=== PATIENT | male | born 1995 | race Caucasian/White ===

== ENCOUNTER 2022-06-04 05:29 | Emergency (ER) | payer SELFPAY ==
[2022-06-04 05:48] VITALS: BP 115/67
[2022-06-04 06:55] LABS: BASOPHILS % (AUTO) 0.5 %; EOSINOPHILS # (AUTO) 0.1 10^3/uL (0.0-0.7); EOSINOPHILS % (AUTO) 1.1 %; HCT - HEMATOCRIT 41.1 % (42.0-52.0); HGB - HEMOGLOBIN 13.6 g/dL (14.0-18.0); LYMPHOCYTES # (AUTO) 2.2 10^3/uL (1.5-3.5); LYMPHOCYTES % (AUTO) 26.9 %; MEAN CORPUSCULAR HEMOGLOBIN 30.6 pg (27.0-31.0); MEAN CORPUSCULAR HGB CONC 33.1 g/dL (32.0-36.0); MEAN CORPUSCULAR VOLUME 92.6 fL (80.0-94.0); MEAN PLATELET VOLUME 10.1 fL (7.4-11.4); MONOCYTES # (AUTO) 0.9 10^3/uL (0.0-1.0); MONOCYTES % (AUTO) 11.1 %; PLT - PLATELET COUNT 201 10^3/uL (130-450); RED BLOOD COUNT 4.44 10^6/uL (4.70-6.10); RED CELL DISTRIBUTION WIDTH 12.1 % (12.0-15.0); WHITE BLOOD COUNT 8.3 x10^3/uL (4.8-10.8)
[2022-06-04 07:04] LABS: ALBUMIN/GLOBULIN RATIO 1.1 (1.0-2.2); BILIRUBIN,TOTAL 0.6 mg/dL (0.2-1.0); CREATININE 0.8 mg/dL (0.6-1.2); POTASSIUM 3.8 mmol/L (3.5-5.0); TOTAL PROTEIN 7.6 g/dL (6.7-8.2)
--- NOTE | 2022-06-04 07:28 | ED Physician Documentation ---
History of Present Illness - Stated complaint Stated Complaint: SOA, DIZZY, NUMBNESS - Chief complaint Chief Complaint: General - History obtained from History obtained from: Patient - History of Present Illness Timing: How many days ago (3) Pain level max: 0 Pain level now: 0 - Additonal information Additional information: HPI from patient. Patient c/o insomnia x past three nights. Patient notes episodic dyspnea which patient describes as "I feel like no matter how deep a breath I take, I'm still not getting enough air". Denies cough, fever, chest pain, leg swelling. Denies h/o similar symptoms. Review of Systems Cardiac: denies: Chest pain / pressure, Palpitations Respiratory: reports: Dyspnea. denies: Cough Musculoskeletal: denies: Extremity swelling PD PAST MEDICAL HISTORY - Past Medical History Past Medical History: Yes Cardiovascular: None Respiratory: None Neuro: None Endocrine/Autoimmune: None GI: None : None HEENT: None Psych: None Musculoskeletal: None Derm: None Other Past Medical History: SEXUAL RE ASSIGNMENT... - Past Surgical History Past Surgical History: Yes General: Other - Present Medications Home Medications: Ambulatory Orders Medication Instructions Recorded Confirmed Progesterone,Micronized 100 gm MC DAILY 08/21/21 06/04/22 [Progesterone] Spironolactone [Aldactone] 125 mg PO DAILY 08/21/21 06/04/22 estradioL [Estradiol] 5 mg PO DAILY 08/21/21 Azithromycin [Zithromax] 250 mg PO DAILY #4 tablet 06/04/22 - Allergies Allergies/Adverse Reactions: Allergies Allergy/AdvReac Type Severity Reaction Status Date / Time No Known Drug Allergies Allergy Verified 06/04/22 05:48 - Social History Does the pt smoke?: No Smoking Status: Never smoker Does the pt drink ETOH?: Yes Does the pt have substance abuse?: No - Immunizations Immunizations are current?: Yes - POLST Patient has POLST: No PD ED PE NORMAL - Vitals Vital signs reviewed: Yes - General General: Alert and oriented X 3, No acute distress, Well developed/nourished - Cardiac Cardiac: RRR, No murmur - Respiratory Respiratory: No respiratory distress, Clear bilaterally - Extremities Extremities: No edema Results - Vitals Vitals: Vital Signs - 24 hr 06/04/22 05:46 Temperature 36.4 C L Heart Rate 77 Respiratory 18 Rate Blood Pressure 115/67 O2 Saturation 98 Oxygen O2 Source Room air - Labs Labs: Laboratory Tests 06/04/22 06/04/22 06/04/22 06:46 06:46 06:46 WBC 8.3 RBC 4.44 L Hgb 13.6 L Hct 41.1 L MCV 92.6 MCH 30.6 MCHC 33.1 RDW 12.1 Plt Count 201 MPV 10.1 Neut # (Auto) 5.0 Lymph # (Auto) 2.2 [place] # (Auto) 0.9 Eos # (Auto) 0.1 Baso # (Auto) 0.0 Absolute Nucleated RBC 0.00 Nucleated RBC % 0.0 Sodium 138 Potassium 3.8 Chloride 103 Carbon Dioxide 26 Anion Gap 9.0 BUN 10 Creatinine 0.8 Estimated GFR (MDRD) 119 Glucose 94 Calcium 9.0 Total Bilirubin 0.6 AST 16 ALT 14 Alkaline Phosphatase 73 Total Protein 7.6 Albumin 4.0 Globulin 3.6 Albumin/Globulin Ratio 1.1 Lipase 31 TSH 2.55 - Rads (name of study) chest xray Radiology: Prelim report reviewed, EMP read indepedently, See rad report, Other (I do not see any abnormality on CXR; however, radiologist's interpretation is presence of faint left upper lobe infiltrate) PD Medical Decision Making - ED course Complexity details: reviewed results, re-evaluated patient, considered differential, d/w patient ED course: HPI from patient. Tests ordered, resulted, and reviewed by me: CBC, ER abdominal panel, TSH, and chest xray. The results of these blood tests are all normal except for hemoglobin/hematocrit slightly below the cutoff for low-normal. This is incidental finding, as it is not nearly low enough to attribute any symptoms to, and the result is comparable to a previous result (July 2021). I do not appreciate any abnormality on chest xray, although the radiologist's interpretation is that of faint left upper lobe infiltrate. I discussed the results with patient and given the subtle cxr finding, will rx azithromycin (first dose in ED). I did explain to patient that although the cxr finding might explain shortness of breath, I suspect the finding is too subtle to confidently attribute the symptoms (specifically shortness of breath) to the finding. I offered short course of lorazepam, as anxiety could be contributing to symptoms, possibly causing them. Patient declines, says he will try melatonin instead. I explained that I am not attributing his symptoms to anxiety, but that given his chief complaint of insomnia, the medication could help (short-term use only) with this problem. Departure - Departure Disposition: 01 Home, Self Care Clinical Impression: Dyspnea, Insomnia Condition: Good Instructions: ED Dyspnea Shortness of Breath, ED Insomnia Prescriptions: Azithromycin [Zithromax] 250 mg PO DAILY #4 tablet Comments: The results of tonight's blood tests are normal; the only exception is that your red blood cell level is just below threshold for normal, but it is not nearly low have to cause any symptoms. Additionally, it is about the same as a previous result from July 2021. The radiologist is detecting a very faint left lung haziness; as we discussed, one of the possible explanations for this finding would be very early pneumonia, and so you were given a dose of an antibiotic (Zithromax) in the emergency department, and I have electronically submitted a prescription for another 4 days of this antibiotic to [facility] in [place]. Recommend a follow-up with your primary care provider, particularly if the insomnia continues or reoccurs. Forms: Activity restrictions Discharge Date/Time: 06/04/22 08:30
[2022-06-04] MEDS ORDERED: AZITHROMYCIN 250 MG TABLET PO STA (08:19)
--- NOTE | 2022-06-04 08:20 | XRAY Report ---
PROCEDURE: Chest 2 View X-Ray INDICATIONS: dyspnea TECHNIQUE: 2 views of the chest were acquired. COMPARISON: CT chest with, 02/17/2022 FINDINGS: Surgical changes and devices: None. Lungs and pleura: No pleural effusions or pneumothorax. Possible subtle infiltrate in the left supra hilar area. Mediastinum: Mediastinal contours are normal. Heart size is normal. Bones and chest wall: No suspicious bony abnormalities. Soft tissues appear unremarkable. IMPRESSION: Possible subtle infiltrate in the upper upper lobe. No significant discrepancy with the preliminary interpretation. Reviewed by: Archie Ly MD on 06/04/2022 8:18 AM PST Approved by: Archie Ly MD on 06/04/2022 8:18 AM [facility] Station ID: [id number]
== END 2022-06-04 08:30 | disposition home or self-care (01) ==
LOC: ED 05:29
DX: G47.00 Insomnia, unspecified (principal); R06.09 Other forms of dyspnea
CPT/HCPCS: 36415; 71046; 80053; 83690; 84443; 85025; 99284; A9270

== ENCOUNTER 2022-07-12 08:42 | Day surgery (SDC) | payer OTHER ==
[2022-07-12 09:15] LABS: BASOPHILS # (AUTO) 0.1 10^3/uL (0.0-0.1); BASOPHILS % (AUTO) 0.5 %; EOSINOPHILS # (AUTO) 0.1 10^3/uL (0.0-0.7); EOSINOPHILS % (AUTO) 0.9 %; HCT - HEMATOCRIT 43.5 % (42.0-52.0); HGB - HEMOGLOBIN 14.4 g/dL (14.0-18.0); LYMPHOCYTES # (AUTO) 1.7 10^3/uL (1.5-3.5); MEAN CORPUSCULAR HEMOGLOBIN 30.6 pg (27.0-31.0); MEAN CORPUSCULAR HGB CONC 33.1 g/dL (32.0-36.0); MEAN CORPUSCULAR VOLUME 92.6 fL (80.0-94.0); MEAN PLATELET VOLUME 10.2 fL (7.4-11.4); MONOCYTES # (AUTO) 1.3 10^3/uL (0.0-1.0); MONOCYTES % (AUTO) 10.3 %; NEUTROPHILS # (AUTO) 9.5 10^3/uL (1.5-6.6); NEUTROPHILS % (AUTO) 74.8 %; PLT - PLATELET COUNT 209 10^3/uL (130-450); RED CELL DISTRIBUTION WIDTH 12.3 % (12.0-15.0); WHITE BLOOD COUNT 12.7 x10^3/uL (4.8-10.8)
[2022-07-12] MEDS ORDERED: iohexoL-300 100 ML VIAL ONE (09:16)
--- NOTE | 2022-07-12 09:23 | ED Physician Documentation ---
PD HPI ABD PAIN - Stated complaint Stated Complaint: ABD PX - Chief complaint Chief Complaint: Abd Pain - History obtained from History obtained from: Patient - History of Present Illness Timing - duration: Days (1) Timing - details: Gradual onset Pain level max: 7 Pain level now: 5 Quality: Aching, Pain - Additional information Additional information: Patient is a 26-year-old transgendered female (MTF) she complains of periumbilical pain that started last night and has moved to the right lower quadrant today. Pain has been constant. Worse with movement, palpation. Better with remaining still. Decreased appetite today. No nausea or vomiting. 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 Sees Dr. Dailey, oncology, at the [facility] clinic. No fevers. No chills. Review of Systems Constitutional: denies: Fever, Chills GI: denies: Vomiting, Diarrhea Skin: denies: Rash Musculoskeletal: denies: Neck pain, Back pain Neurologic: denies: Headache PD PAST MEDICAL HISTORY - Past Medical History Past Medical History: No Cardiovascular: None Respiratory: None Neuro: None Endocrine/Autoimmune: None GI: None : None HEENT: None Psych: None Musculoskeletal: None Derm: None - Past Surgical History Past Surgical History: Yes General: Other - Present Medications Home Medications: Ambulatory Orders Medication Instructions Recorded Confirmed Progesterone,Micronized 100 gm MC DAILY 08/21/21 07/12/22 [Progesterone] Spironolactone [Aldactone] 125 mg PO DAILY 08/21/21 07/12/22 estradioL [Estradiol] 5 mg PO DAILY 08/21/21 07/12/22 - Allergies Allergies/Adverse Reactions: Allergies Allergy/AdvReac Type Severity Reaction Status Date / Time No Known Drug Allergies Allergy Verified 07/12/22 08:54 - Social History Does the pt smoke?: No Smoking Status: Never smoker Does the pt drink ETOH?: Yes Does the pt have substance abuse?: No - Immunizations Immunizations are current?: Yes - POLST Patient has POLST: No PD ED PE NORMAL - Vitals Vital signs reviewed: Yes - General General: Alert and oriented X 3, No acute distress - HEENT HEENT: Moist mucous membranes - Neck Neck: Supple, no meningeal sign - Cardiac Cardiac: RRR, Strong equal pulses - Respiratory Respiratory: No respiratory distress, Clear bilaterally - Abdomen Abdomen: Soft, Other (Tender to palpation right lower quadrant or McBurney's point. Positive psoas. Positive obturator. Positive heeltap) - Back Back: No CVA TTP, No spinal TTP - Derm Derm: Warm and dry - Neuro Neuro: Alert and oriented X 3 - Psych Psych: Normal mood, Normal affect Results - Vitals Vitals: Vital Signs - 24 hr 07/12/22 07/12/22 08:50 11:00 Temperature 36.4 C L 36.7 C Heart Rate 89 77 Respiratory 16 17 Rate Blood Pressure 144/82 H 126/73 O2 Saturation 99 Oxygen O2 Source Room air - Labs Labs: Laboratory Tests 07/12/22 07/12/22 07/12/22 08:55 09:03 09:03 WBC 12.7 H RBC 4.70 Hgb 14.4 Hct 43.5 MCV 92.6 MCH 30.6 MCHC 33.1 RDW 12.3 Plt Count 209 MPV 10.2 Neut # (Auto) 9.5 H Lymph # (Auto) 1.7 [place] # (Auto) 1.3 H Eos # (Auto) 0.1 Baso # (Auto) 0.1 Absolute Nucleated RBC 0.00 Nucleated RBC % 0.0 Sodium 133 L Potassium 3.8 Chloride 99 L Carbon Dioxide 26 Anion Gap 8.0 BUN 11 Creatinine 0.8 Estimated GFR (MDRD) 119 Glucose 86 Calcium 9.2 Total Bilirubin 0.9 AST 18 ALT 15 Alkaline Phosphatase 65 Total Protein 8.1 Albumin 4.4 Globulin 3.7 Albumin/Globulin Ratio 1.2 Lipase 31 Urine Color YELLOW Urine Clarity CLEAR Urine pH 6.0 Ur Specific [place] 1.010 Urine Protein NEGATIVE Urine Glucose (UA) NEGATIVE Urine Ketones NEGATIVE Urine Occult Blood TRACE-INTA Urine Nitrite NEGATIVE Urine Bilirubin NEGATIVE Urine Urobilinogen 0.2 (NORMAL) Ur Leukocyte Esterase NEGATIVE Ur Microscopic Review NOT INDICATED Urine Culture Comments NOT INDICATED SARS-CoV-2 (PCR) 07/12/22 10:25 WBC RBC Hgb Hct MCV MCH MCHC RDW Plt Count MPV Neut # (Auto) Lymph # (Auto) [place] # (Auto) Eos # (Auto) Baso # (Auto) Absolute Nucleated RBC Nucleated RBC % Sodium Potassium Chloride Carbon Dioxide Anion Gap BUN Creatinine Estimated GFR (MDRD) Glucose Calcium Total Bilirubin AST ALT Alkaline Phosphatase Total Protein Albumin Globulin Albumin/Globulin Ratio Lipase Urine Color Urine Clarity Urine pH Ur Specific [place] Urine Protein Urine Glucose (UA) Urine Ketones Urine Occult Blood Urine Nitrite Urine Bilirubin Urine Urobilinogen Ur Leukocyte Esterase Ur Microscopic Review Urine Culture Comments SARS-CoV-2 (PCR) NOT DETECTED - Rads (name of study) CT abdomen pelvis Radiology: Final report received, See rad report PD Medical Decision Making - ED course Complexity details: reviewed results, re-evaluated patient, considered differential, d/w patient ED course: Patient with acute appendicitis on CT scan. No perforation. Given IV Zosyn. Discussed the case with Dr. Marmolejo, general surgery on-call who will take the patient to the OR for further care. This document was made in part using voice recognition software. While efforts are made to proofread this document, sound alike and grammatical errors may occur. Departure - Departure Disposition: ED Transfer to [facility] Clinical Impression: Appendicitis Qualifiers: Appendicitis type: acute appendicitis Acute appendicitis type: unspecified acute appendicitis type Qualified Code(s): K35.80 - Unspecified acute appendicitis Condition: Stable Discharge Date/Time: 07/12/22 12:39
[2022-07-12 09:26] LABS: ALBUMIN 4.4 g/dL (3.2-5.5); ALBUMIN/GLOBULIN RATIO 1.2 (1.0-2.2); BILIRUBIN,TOTAL 0.9 mg/dL (0.2-1.0); CALCIUM 9.2 mg/dL (8.5-10.3); CREATININE 0.8 mg/dL (0.6-1.2); POTASSIUM 3.8 mmol/L (3.5-5.0); TOTAL PROTEIN 8.1 g/dL (6.7-8.2)
[2022-07-12 09:53] LABS: BILIRUBIN,URINE NEGATIVE (NEGATIVE); GLUCOSE, URINE (UA) NEGATIVE (NEGATIVE); KETONES,URINE (UA) NEGATIVE (NEGATIVE); LEUKOCYTE ESTERASE, URINE NEGATIVE (NEGATIVE); NITRITE,URINE NEGATIVE (NEGATIVE); OCCULT BLOOD,URINE TRACE-INTA (NEGATIVE); PROTEIN,URINE NEGATIVE (NEGATIVE); UROBILINOGEN,URINE 0.2 (NORMAL) E.U./dL (NORMAL)
[2022-07-12] MEDS ORDERED: iohexoL-300 100 ML VIAL IVP ONE (09:53)
[2022-07-12] MEDS ORDERED: PIPERACILLIN/TAZOBACTAM 3.375 GM in SODIUM CHLORIDE 0.9% MINIBAG 100 ML IV STA (09:59)
--- NOTE | 2022-07-12 09:59 | CT Report ---
PROCEDURE: ABDOMEN/PELVIS W INDICATIONS: RLQ Abdominal pain, appendicitis suspected CONTRAST: 100ml omni 300 TECHNIQUE: After the administration of IV contrast, 5 mm thick sections acquired from the diaphragms to the symp hysis. 5 mm thick coronal and sagittal reformats were acquired. For radiation dose reduction, the f ollowing was used: automated exposure control, adjustment of mA and/or kV according to patient size. COMPARISON: 06/24/2022, 02/17/2022 FINDINGS: Image quality: Excellent. ABDOMEN: Lung bases: Lung bases are clear. Heart size is normal. Solid organs: Liver and spleen are normal in size and enhancement. Gallbladder wall does not appear thickened. Biliary system is non dilated. Pancreas enhances normally. No adrenal nodules. Kidn eys demonstrate normal size and enhancement, without hydronephrosis. Peritoneum and bowel: The appendix is abnormal, with moderate wall thickening and hyperenhancement a nd is best seen on series 6 images 24 and 25. The appendix is mildly dilated at 8 to 9 mm. Minimal cruz rrounding inflammatory change can be seen. No findings of perforation or abscess can be seen. No dilated loops of small bowel are seen. No significant colonic abnormality is seen. No significant gastric abnormality is seen. Nodes and vessels: Mild prominence of lymph nodes can be seen within the right lower quadrant. No re troperitoneal or mesenteric adenopathy by size criteria. Aorta and inferior vena cava are normal in size. Miscellaneous: No ventral hernias. PELVIS: Genitourinary: Bladder wall thickness is normal. Miscellaneous: No inguinal hernias or adenopathy. Bones: No suspicious bony lesions. No vertebral body compression fractures. IMPRESSION: Early appendicitis, without findings of perforation or abscess. Mild prominence of lymph nodes can be seen within the right lower quadrant, yet without jaiden enlarge ment. Note: Case discussed by telephone with Dr. Lopez at 8:56 AM [place] time on 07/12/2022. Reviewed by: Martell Rico MD on 07/12/2022 8:58 AM [facility] Approved by: Martell Rico MD on 07/12/2022 8:58 AM [facility] Station ID: [id number]
[2022-07-12 10:02] LABS: CLARITY,URINE CLEAR (CLEAR)
[2022-07-12] MEDS ORDERED: SODIUM CHLORIDE 0.9% 1,000 ML IV STA (10:08)
[2022-07-12] MEDS ORDERED: PROPOFOL 200 MG/20 ML VIAL IVP ONE (11:47)
[2022-07-12] MEDS ORDERED: DEXAMETHASONE 4 MG/ML VIAL ONE (11:50)
[2022-07-12] MEDS ORDERED: ROCURONIUM 50 MG/5 ML VIAL ONE (11:50)
[2022-07-12] MEDS ORDERED: ONDANSETRON 4 MG/2 ML VIAL ONE (11:50)
--- NOTE | 2022-07-12 11:53 | ANESTHESIA ---
Pre-Anesthesia VS, & Labs - Diagnosis appendicitis - Procedure laparoscopic appendectomy Vital Signs: Temp Pulse Resp BP Pulse Ox O2 Flow Rate 36.7 C 77 17 126/73 99 07/12/22 11:00 07/12/22 11:00 07/12/22 11:00 07/12/22 11:00 07/12/22 08:50 Height: 5 ft 11 in Weight (kg): 94 kg Body Mass Index: 28.9 BMI Classification: Overweight - NPO >8 hours - Lab Results Current Lab Results: Laboratory Tests 07/12/22 09:03: Sodium 133 L, Potassium 3.8, Chloride 99 L, Carbon Dioxide 26, Anion Gap 8.0, BUN 11, Creatinine 0.8, Estimated GFR (MDRD) 119, Glucose 86, Calcium 9.2, Total Bilirubin 0.9, AST 18, ALT 15, Alkaline Phosphatase 65, Total Protein 8.1, Albumin 4.4, Globulin 3.7, Albumin/Globulin Ratio 1.2, Lipase 31 07/12/22 09:03: WBC 12.7 H, RBC 4.70, Hgb 14.4, Hct 43.5, MCV 92.6, MCH 30.6, MCHC 33.1, RDW 12.3, Plt Count 209, MPV 10.2, Neut # (Auto) 9.5 H, Lymph # (Auto) 1.7, [place] # (Auto) 1.3 H, Eos # (Auto) 0.1, Baso # (Auto) 0.1, Absolute Nucleated RBC 0.00, Nucleated RBC % 0.0 Fish Bones: 07/12/22 09:03 07/12/22 09:03 Home Medications and Allergies Active Medications Sodium Chloride (Normal Saline 0.9%) 1,000 mls @ 150 mls/hr IV .[id number] STA Stop: 07/12/22 16:47 Last Admin: 07/12/22 10:26 Dose: 150 mls/hr Progesterone,Micronized [Progesterone] 100 gm MC DAILY 08/21/21 Spironolactone [Aldactone] 125 mg PO DAILY 08/21/21 estradioL [Estradiol] 5 mg PO DAILY 08/21/21 Allergies/Adverse Reactions: Allergies Allergy/AdvReac Type Severity Reaction Status Date / Time No Known Drug Allergies Allergy Verified 07/12/22 08:54 Anes History & Medical History - Anesthetic History Anesthesia Complications: reports: No previous complications - Medical History Cardiovascular: reports: None Pulmonary: reports: None Gastrointestinal: reports: None Urinary: reports: None Neuro: reports: None Musculoskeletal: reports: None Endocrine/Autoimmune: reports: None Blood Disorders: reports: None Skin: reports: None Smoking Status: Never smoker History of Cancer?: Yes (testicular seminoma) - Surgical History General: reports: Other Exam General: Alert, Oriented x3, Cooperative Dental: WNL Mouth Opening: Greater than 4 Fingerbreadths Neck Mobility: Normal Mallampati classification: II Thyromental Distance: greater than 6 cm Plan Anesthesia Type: General Consent for Procedure(s) Verified and Reviewed: Yes Code Status: Attempt Resuscitation ASA classification: 2-Mild systemic disease Is this case an emergency?: No
[2022-07-12] MEDS ORDERED: NALOXONE 0.4 MG/ML VIAL IVP PRN (11:55)
[2022-07-12] MEDS ORDERED: ATROPINE ABBOJECT 1 MG/10 ML SYRINGE IVP PRN (11:55)
[2022-07-12] MEDS ORDERED: MORPHINE 2 MG/ML CARPUJECT IVP PRN (11:55)
[2022-07-12] MEDS ORDERED: fentaNYL 100 MCG/2 ML VIAL IVP PRN (11:55)
[2022-07-12] MEDS ORDERED: ONDANSETRON 4 MG/2 ML VIAL IVP PRN ×2 (11:55→13:58)
[2022-07-12] MEDS ORDERED: HYDROmorphone 0.5 MG/0.5 ML SYRINGE IVP PRN (11:55)
[2022-07-12] MEDS ORDERED: METOCLOPRAMIDE 10 MG/2 ML VIAL IVP PRN (11:55)
[2022-07-12] MEDS ORDERED: ePHEDrine 50 MG/ML VIAL IVP PRN (11:55)
[2022-07-12] MEDS ORDERED: MIDAZOLAM 2 MG/2 ML VIAL ONE (11:58)
[2022-07-12] MEDS ORDERED: fentaNYL 100 MCG/2 ML VIAL ONE (11:58)
[2022-07-12] MEDS ORDERED: LACTATED RINGERS 1,000 ML IV SCH (12:00)
[2022-07-12] MEDS ORDERED: BUPIVACAINE 0.25% PF 30 ML VIAL ONE (12:02)
--- NOTE | 2022-07-12 12:14 | HISTORY & PHYSICAL EXAMINATION ---
Chief Complaint - Chief Complaint Chief Complaint: abdominal pain History of Present Illness - Admitted From Admitted From:: ED - History Obtained From Records Reviewed: yes History obtained from: pt Exam Limitations: none - History of Present Illness HPI Comment/Other: periumbical pain last pm. pain rlq this am. wbc elevated and ct early appendicitis. hx testicular cancer and chemo. no recurrence. otherwise well. History - Past Medical History Cardiovascular: reports: None Respiratory: reports: None Neuro: reports: None Endocrine/Autoimmune: reports: None GI: reports: None : reports: None HEENT: reports: None Psych: reports: None Musculoskeletal: reports: None Derm: reports: None MRSA Hx?: No - Past Surgical History General: reports: Other - POLST Patient has POLST: No Meds/Allgy - Home Medications Home Medications: Ambulatory Orders Medication Instructions Recorded Confirmed Progesterone,Micronized 100 gm MC DAILY 08/21/21 07/12/22 [Progesterone] Spironolactone [Aldactone] 125 mg PO DAILY 08/21/21 07/12/22 estradioL [Estradiol] 5 mg PO DAILY 08/21/21 07/12/22 - Allergies Allergies/Adverse Reactions: Allergies Allergy/AdvReac Type Severity Reaction Status Date / Time No Known Drug Allergies Allergy Verified 07/12/22 08:54 Review of Systems - Other Findings Other Findings: 10 pt ros as above otherwise unremarkable Exam - Vital Signs Reviewed Vital Signs: Yes Vital Signs: Vital Signs x48h Temp Pulse Resp BP Pulse Ox 07/12/22 11:00 36.7 C 77 17 126/73 07/12/22 08:50 36.4 C L 89 16 144/82 H 99 - Physical Exam General Appearance: positive: No acute distress, Alert Eyes Bilateral: positive: PERRL, EOMI ENT: positive: No signs of dehydration Neck: positive: No JVD, Trachea midline Respiratory: positive: No respiratory distress, Breath sounds nml Cardiovascular: positive: Regular rate & rhythm Abdomen: positive: No distention, Other (right lower quadrant tenderness) Neurologic/Psychiatric: positive: Oriented x3 Conclusion/Plan - Problem List (1) Appendicitis Conclusion/Plan: plan appendectomy. parq held and consent obtained Qualifiers: Appendicitis type: acute appendicitis Acute appendicitis type: unspecified acute appendicitis type Qualified Code(s): K35.80 - Unspecified acute appendicitis - Lab Results Fish Bones: 07/12/22 09:03 07/12/22 09:03
[2022-07-12] MEDS ORDERED: BUPIVACAINE 0.25% PF 30 ML VIAL SUBQ ONE (13:04)
[2022-07-12] MEDS ORDERED: ACETAMINOPHEN 1,000 MG/100 ML 1,000 MG/100 ML BAG IV ONE (13:16)
[2022-07-12] MEDS ORDERED: SUGAMMADEX 200 MG/2 ML VIAL IVP ONE (13:30)
[2022-07-12] MEDS ORDERED: LACTATED RINGERS 900 ML IV ONE (13:51)
[2022-07-12] MEDS: fentaNYL 100 MCG/2 ML VIAL ONE ×3 (13:57→14:15)
[2022-07-12] MEDS ORDERED: HYDROcod/ACETAM 5/325 MG TABLET PO PRN (13:58)
--- NOTE | 2022-07-12 14:06 | OPERATIVE REPORT ---
Operative Report - General Procedure Date: 07/12/22 Planned Procedure: lap appendectomy Pre-Op Diagnosis: acute appendicitis Procedure Performed: laparoscopic appendectomy Post Op Diagnosis: acute appendicitis - Procedure Note Primary Surgeon: skylar shaikh Anesthesia Technique: General ET tube, Local Pathology: appendix Estimated Blood Loss (mL): 2 Drain/Tube Type: Other (none) Indications: acute appendicitis Findings: as above Complications: none - Other Other Information/Narrative: The patient was properly identified brought to the operating room and placed in supine position. The patient was previously given antibiotics. Sequential compression devices were placed. General endotracheal anesthesia was induced. The patient was prepped and draped in a sterile fashion. Local anesthetic was given to incision areas. An infraumbilical incision was made in and proceeded down to the fascia. The fascia was incised lifted upwards and abdomen entered with a Veress needle. CO2 was insufflated to a pressure of 15. A 12 mm trocar was placed with 30 degree scope. There was no evidence of injury from Veress needle or trocar placement. Under direct vision a 5 mm trocar was placed suprapubic and a 5 mm trocar was placed in the right upper quadrant. Appendix was identified and retracted anteriorly. Peritoneal attachments were taken down with careful use of cautery. Appendix was mobilized more anterior. A plane was then created between the mesoappendix and the appendix at the cecum. Appendix was divided with an Endo KAYLA intestinal load to include up a small portion of the cecum. The mesoappendix was then divided with an Endo KAYLA vascular load. There was secure closure at the cecum and hemostasis was assured. The appendix was brought out. hemostasis again assured. Trochars were removed under direct vision. Fascia at the infraumbilical site was closed with a running 0 Vicryl suture. Subcutaneous tissue was irrigated and skin reapproximated with buried interrupted 4-0 Monocryl. Dressings were applied. The patient tolerated the procedure well was awakened and brought to recovery in good condition.
[2022-07-12] MEDS ORDERED: LACTATED RINGERS 1,000 ML IV ONE (14:21)
--- NOTE | 2022-07-12 14:24 | ANESTHESIA POST OP EVALUATION ---
Anesthesia Post Eval - Post Anesthesia Eval Vitals: Last Vital Signs Temp 36.4 C L 07/12/22 14:05 Pulse 67 07/12/22 14:05 Resp 14 07/12/22 14:05 BP 129/76 07/12/22 14:05 Pulse Ox 100 07/12/22 14:05 O2 Flow Rate CV Function Including HR & BP: Stable Pain Control: Satisfactory Nausea & Vomiting: Negative Mental Status: Baseline Respiratory Status: Airway Patent Hydration Status: Satisfactory Anesthesia Complications: None
[2022-07-12] MEDS ORDERED: PIPERACILLIN/TAZOBACTAM 3.375 GM in SODIUM CHLORIDE 0.9% MINIBAG 100 ML IV ONE (15:00)
[2022-07-12] MEDS ORDERED: D5.45NS W/20 MEQ KCL 1,000 ML IV SCH (15:00)
[2022-07-12 17:08] VITALS: BP 128/80
== END 2022-07-12 18:53 | disposition home or self-care (01) ==
LOC: ED 08:42 → SDS 11:50 → MS2 14:30 → SDS 18:53
PROVIDERS: ATTEND Surgery
PROC: 0DTJ4ZZ Resection of Appendix, Percutaneous Endoscopic Approach (ICD-10-PCS; principal; 2022-07-12 12:15)
DX: K35.80 Unspecified acute appendicitis (principal); Z20.822 Contact with and (suspected) exposure to COVID-19
CPT/HCPCS: 36415; 44970; 74177; 80053; 81003; 83690; 85025; 87635; 96365; 99285; A9270; J0131; J7120; Q9967; 81001; 87086

== ENCOUNTER 2023-09-10 13:37 | Emergency (ER) | payer OTHER, MEDICAID ==
[2023-09-10 14:43] LABS: BASOPHILS # (AUTO) 0.1 10^3/uL (0.0-0.1); BASOPHILS % (AUTO) 0.7 %; EOSINOPHILS # (AUTO) 0.1 10^3/uL (0.0-0.7); EOSINOPHILS % (AUTO) 1.7 %; HCT - HEMATOCRIT 42.5 % (42.0-52.0); HGB - HEMOGLOBIN 13.9 g/dL (14.0-18.0); LYMPHOCYTES % (AUTO) 26.7 %; MEAN CORPUSCULAR HEMOGLOBIN 30.3 pg (27.0-31.0); MEAN CORPUSCULAR HGB CONC 32.7 g/dL (32.0-36.0); MEAN CORPUSCULAR VOLUME 92.6 fL (80.0-94.0); MEAN PLATELET VOLUME 9.9 fL (7.4-11.4); MONOCYTES # (AUTO) 0.7 10^3/uL (0.0-1.0); MONOCYTES % (AUTO) 9.3 %; NEUTROPHILS # (AUTO) 4.6 10^3/uL (1.5-6.6); NEUTROPHILS % (AUTO) 61.5 %; PLT - PLATELET COUNT 210 10^3/uL (130-450); RED BLOOD COUNT 4.59 10^6/uL (4.70-6.10); RED CELL DISTRIBUTION WIDTH 12.3 % (12.0-15.0); WHITE BLOOD COUNT 7.4 x10^3/uL (4.8-10.8)
[2023-09-10 14:58] LABS: ALBUMIN 4.8 g/dL (3.2-5.5); ALBUMIN/GLOBULIN RATIO 1.5 (1.0-2.2); BILIRUBIN,TOTAL 0.3 mg/dL (0.2-1.0); CALCIUM 10.2 mg/dL (8.5-10.3); CREATININE 0.8 mg/dL (0.6-1.3)
[2023-09-10] MEDS: SIMETHICONE CHEW 80 MG TABLET PO STA (15:50)
--- NOTE | 2023-09-10 15:53 | ED Physician Documentation ---
History of Present Illness - Stated complaint Stated Complaint: /GI N/V/D - Chief complaint Chief Complaint: Abd Pain - History obtained from History obtained from: Patient - Additonal information Additional information: 27-year-old presents with periumbilical pain that started today after eating lunch. They state they woke up in normal state of health earlier today, ate hot dogs for breakfast because they were out of other food, and went to work. After eating lunch at work they felt a sharp stabbing type pain in the periumbilical region. Pain comes in waves. They also noticed after having a bowel movement that there was some streaks of blood in it and on the toilet paper, no blood in the toilet. Earlier today they had had some diarrhea but her last bowel movement was soft. No urinary symptoms, no vomiting, no fever. No rectal pain. They state history of an appendectomy. hx/o prior gas pains and patient thinks that this may be gas pains but is not sure. No medication attempted for this issue. They are on spironolactone and HRT. Patient also notes that they sometimes do enemas w/ tap water prior to anal sex and wonders if that could be a problem. Has note done this for a couple of months though. Denies any rectal trauma. Review of Systems Constitutional: reports: Reviewed and negative Eyes: reports: Reviewed and negative Ears: reports: Reviewed and negative Nose: reports: Reviewed and negative Throat: reports: Reviewed and negative Cardiac: reports: Reviewed and negative Respiratory: reports: Reviewed and negative GI: reports: Abdominal Pain, Bloody / black stool : reports: Reviewed and negative Skin: reports: Reviewed and negative Musculoskeletal: reports: Reviewed and negative Neurologic: reports: Reviewed and negative Psychiatric: reports: Reviewed and negative Endocrine: reports: Reviewed and negative PD PAST MEDICAL HISTORY - Past Medical History Past Medical History: Yes Cardiovascular: None Respiratory: None Neuro: None Endocrine/Autoimmune: None GI: None : None HEENT: None Psych: None Musculoskeletal: None Derm: None - Past Surgical History Past Surgical History: Yes General: Appendectomy - Present Medications Home Medications: Ambulatory Orders Medication Instructions Recorded Confirmed Progesterone,Micronized 100 gm MC DAILY 08/21/21 09/10/23 [Progesterone] Spironolactone [Aldactone] 125 mg PO DAILY 08/21/21 09/10/23 estradioL [Estradiol] 5 mg PO DAILY 08/21/21 09/10/23 Dicyclomine [Bentyl] 10 mg PO QID PRN #20 cap 09/10/23 Ondansetron Odt [Zofran] 4 mg TL Q6H PRN #10 tablet 09/10/23 Simethicone [Gas Relief] 80 mg PO Q6H PRN #20 ea 09/10/23 - Allergies Allergies/Adverse Reactions: Allergies Allergy/AdvReac Type Severity Reaction Status Date / Time No Known Drug Allergies Allergy Verified 09/10/23 15:21 - Social History Does the pt smoke?: No Smoking Status: Never smoker Does the pt drink ETOH?: Yes Does the pt have substance abuse?: No - Immunizations Immunizations are current?: Yes - POLST Patient has POLST: No PD ED PE NORMAL - Vitals Vital signs reviewed: Yes - General General: Alert and oriented X 3, No acute distress, Well developed/nourished - HEENT HEENT: Atraumatic, Moist mucous membranes - Neck Neck: Supple, no meningeal sign, No JVD - Cardiac Cardiac: RRR, No murmur - Respiratory Respiratory: No respiratory distress, Clear bilaterally - Abdomen Abdomen: Normal bowel sounds, Soft, Non distended, Other (Periumbilical tenderness and generalized abdominal tenderness. No guarding.) - Derm Derm: Normal color, Warm and dry, No rash - Neuro Neuro: Alert and oriented X 3 Eye Opening: Spontaneous Motor: Obeys Commands Verbal: Oriented GCS Score: 15 - Psych Psych: Normal mood, Normal affect Results - Vitals Vitals: Vital Signs - 24 hr 09/10/23 09/10/23 09/10/23 14:20 15:17 16:48 Temperature 36.4 C L Heart Rate 70 63 67 Respiratory 16 17 16 Rate Blood Pressure 130/74 116/73 125/81 H O2 Saturation 99 99 98 Oxygen O2 Source Room air - Labs Labs: Laboratory Tests 09/10/23 09/10/23 09/10/23 14:30 14:38 14:38 WBC 7.4 RBC 4.59 L Hgb 13.9 L Hct 42.5 MCV 92.6 MCH 30.3 MCHC 32.7 RDW 12.3 Plt Count 210 MPV 9.9 Neut # (Auto) 4.6 Lymph # (Auto) 2.0 [place] # (Auto) 0.7 Eos # (Auto) 0.1 Baso # (Auto) 0.1 Absolute Nucleated RBC 0.00 Nucleated RBC % 0.0 Sodium 137 Potassium 4.0 Chloride 102 Carbon Dioxide 30 Anion Gap 5.0 L BUN 15 Creatinine 0.8 Estimated GFR (MDRD) 118 Glucose 101 Calcium 10.2 Total Bilirubin 0.3 AST 14 ALT 11 Alkaline Phosphatase 71 Total Protein 8.0 Albumin 4.8 Globulin 3.2 Albumin/Globulin Ratio 1.5 Lipase 24 Urine Color YELLOW Urine Clarity CLEAR Urine pH 7.0 Ur Specific [place] <=1.005 Urine Protein NEGATIVE Urine Glucose (UA) NEGATIVE Urine Ketones NEGATIVE Urine Occult Blood TRACE-INTA Urine Nitrite NEGATIVE Urine Bilirubin NEGATIVE Urine Urobilinogen 0.2 (NORMAL) Ur Leukocyte Esterase NEGATIVE Ur Microscopic Review NOT INDICATED Urine Culture Comments NOT INDICATED - Rads (name of study) No standard instances Relevant Findings:: Final report received PD Medical Decision Making - ED course Complexity details: reviewed results, re-evaluated patient, considered differential, d/w patient ED course: This is a 27-year-old transgender patient currently on HRT/spironolactone Who presented with periumbilical pain as described in HPI. Pain is crampy in nature, sharp and stabbing when it occurs. Comes and goes, associated with an episode of blood in the stool today. Patient has a history of an appendectomy, no recent antibiotic use, no international travel or atypical foods. Patient is well-appearing here on physical exam, stable vital signs, afebrile. Exam fairly unremarkable other than mild periumbilical tenderness without guarding. Patient is noted to have increased pain at times however when waves of pain cramping, along. Patient was given a dose of simethicone and labs were obtained which are reassuring including CBC, CMP and urinalysis. Patient has already had an appendectomy this this is ruled out, low suspicion forCholecystitis or pancre atitis based on physical exam and lab work. I suspect this is a mild colitis. We did obtain a KUB which is reassuring, no acute findings, no constipation or significant gas. I do not think at this point the patient needs a CT scan, recommended supportive measures including Tylenol, antiemetic if needed, simethicone and dicyclomine. Clear liquids today, advance as tolerated. Anticipate improvement over the next day or 2, return precautions reviewed however if worsening including fever, chills, or increasing GI symptoms. Departure - Departure Disposition: 01 Home, Self Care Clinical Impression: Colitis Condition: Good Instructions: Abdominal Pain Prescriptions: Dicyclomine [Bentyl] 10 mg PO QID PRN #20 cap PRN Reason: Cramp Simethicone [Gas Relief] 80 mg PO Q6H PRN #20 ea PRN Reason: gas symptoms Ondansetron Odt [Zofran] 4 mg TL Q6H PRN #10 tablet PRN Reason: Nausea / Vomiting Comments: Your symptoms are likely due to a mild colitis Or enteritis. Your labs today are stable and not suggestive of infection. Typically these things are self limiting meaning they get better on their own within 1 to 2 days. I have given you some nausea medication as well as an antispasmodic. You can also take [id number] gas medication. I recommend adhering to a bland diet tonight or even consider clear liquid diet tonight and only increase your diet when feeling better. Certain foods, particularly gas producing foods could exacerbate your symptoms. If you develop a fever or worsening symptoms, can return to the ER. Forms: PCP List
[2023-09-10 16:06] LABS: BILIRUBIN,URINE NEGATIVE (NEGATIVE); CLARITY,URINE CLEAR (CLEAR); GLUCOSE, URINE (UA) NEGATIVE (NEGATIVE); KETONES,URINE (UA) NEGATIVE (NEGATIVE); LEUKOCYTE ESTERASE, URINE NEGATIVE (NEGATIVE); NITRITE,URINE NEGATIVE (NEGATIVE); OCCULT BLOOD,URINE TRACE-INTA (NEGATIVE); PROTEIN,URINE NEGATIVE (NEGATIVE); UROBILINOGEN,URINE 0.2 (NORMAL) E.U./dL (NORMAL)
--- NOTE | 2023-09-10 16:17 | XRAY Report ---
PROCEDURE: Abdomen Acute INDICATIONS: abd pain TECHNIQUE: 2 views of the abdomen were acquired. COMPARISON: CT abdomen pelvis 09/07/2022 FINDINGS: Surgical changes and devices: None. Chest: Lungs are clear. Heart size is normal. No pleural effusions. No pneumoperitoneum. Bowel: No pneumoperitoneum. The bowel gas pattern is normal. Stool load within normal limits. Soft tissues: No masses; visualized solid organ contours appear normal in size. No suspicious abdom inal calcifications. Bones: No suspicious bony abnormalities. IMPRESSION: No acute abdominal or chest pathology. Reviewed by: Leslie Paige MD on 09/10/2023 4:15 PM PDT Approved by: Leslie Paige MD on 09/10/2023 4:15 PM PDT Station ID: [id number]
[2023-09-10] MEDS: DICYCLOMINE 10 MG CAPSULE PO STA (16:54)
[2023-09-10] MEDS: ONDANSETRON ODT 4 MG TABLET TL STA (16:54)
[2023-09-10] MEDS: ACETAMINOPHEN 325 MG TABLET PO STA (18:09)
[2023-09-10 18:31] VITALS: BP 124/76; O2SAT 99
== END 2023-09-10 18:26 | disposition home or self-care (01) ==
LOC: ED 13:37
DX: K52.9 Noninfective gastroenteritis and colitis, unspecified (principal); Z90.89 Acquired absence of other organs
CPT/HCPCS: 36415; 80053; 81001; 81003; 83690; 85025; 87086; 99283; 99284

== ENCOUNTER 2023-09-10 21:08 | Emergency (ER) | payer OTHER, MEDICAID ==
[2023-09-10] MEDS ORDERED: iohexoL-300 100 ML VIAL ONE (21:21)
--- NOTE | 2023-09-10 21:57 | ED Physician Documentation ---
PD HPI ABD PAIN - Stated complaint Stated Complaint: NAUSEA AND VOMITING, ABD PAIN - Chief complaint Chief Complaint: Abd Pain - History obtained from History obtained from: Patient - Additional information Additional information: 27-year-old transgender female (born male, on HRT) presents with periumbilical abdominal pain. The patient was seen earlier today with same, he had an evaluation including a KUB, CBC, CMP and urinalysis all of which were reassuring. The patient was feeling generally better at time of discharge however then pain recurred. I did offer additional workup at that time however patient preferred to go home and see if improved. At home pain became unbearable, and she called EMS to return to the ER. Pain is still periumbilical, comes In waves of cramping and accompanied by nausea. She vomited a couple times this evening. He had diarrhea earlier today and then a normal BM this afternoon that had a streak of blood in it. He has not had a fever or chills, no dysuria urgency or frequency. The patient has a history of appendectomy, no other abdominal surgeries. No history of cyclic vomiting, states he does get a lot of gas pains however. He used to use marijuana edibles but has not used them in over a year. Review of Systems Constitutional: reports: Reviewed and negative Eyes: reports: Reviewed and negative Ears: reports: Reviewed and negative Nose: reports: Reviewed and negative Throat: reports: Reviewed and negative Cardiac: reports: Reviewed and negative Respiratory: reports: Reviewed and negative GI: reports: Abdominal Pain, Nausea, Vomiting PD PAST MEDICAL HISTORY - Past Medical History Past Medical History: Yes Cardiovascular: None Respiratory: None Neuro: None Endocrine/Autoimmune: None GI: None : None HEENT: None Psych: None Musculoskeletal: None Derm: None - Past Surgical History Past Surgical History: Yes General: Appendectomy - Present Medications Home Medications: Ambulatory Orders Medication Instructions Recorded Confirmed Progesterone,Micronized 100 gm MC DAILY 08/21/21 09/10/23 [Progesterone] Spironolactone [Aldactone] 125 mg PO DAILY 08/21/21 09/10/23 estradioL [Estradiol] 5 mg PO DAILY 08/21/21 09/10/23 Dicyclomine [Bentyl] 10 mg PO QID PRN #20 cap 09/10/23 Ondansetron Odt [Zofran] 4 mg TL Q6H PRN #10 tablet 09/10/23 Simethicone [Gas Relief] 80 mg PO Q6H PRN #20 ea 09/10/23 - Allergies Allergies/Adverse Reactions: Allergies Allergy/AdvReac Type Severity Reaction Status Date / Time No Known Drug Allergies Allergy Verified 09/10/23 15:21 - Social History Does the pt smoke?: No Smoking Status: Never smoker Does the pt drink ETOH?: Yes Does the pt have substance abuse?: No - Immunizations Immunizations are current?: Yes - POLST Patient has POLST: No PD ED PE NORMAL - Vitals Vital signs reviewed: Yes - General General: Alert and oriented X 3, No acute distress, Well developed/nourished - HEENT HEENT: Atraumatic, Moist mucous membranes - Cardiac Cardiac: RRR, No murmur, No gallop, No rub - Respiratory Respiratory: No respiratory distress, Clear bilaterally - Abdomen Abdomen: Normal bowel sounds, Soft, Other (Generalized abdominal tenderness. Hypoactive bowel tones. ) - Back Back: No CVA TTP - Derm Derm: Normal color, Warm and dry, No rash Results - Vitals Vitals: Vital Signs - 24 hr 09/10/23 21:10 Temperature 36.1 C L Heart Rate 71 Respiratory 16 Rate Blood Pressure 135/72 H O2 Saturation 100 Oxygen O2 Source Room air PD Medical Decision Making - ED course Complexity details: reviewed results, re-evaluated patient, considered differential, d/w patient ED course: 27-year-old transgender female presented for the second time today with abdominal pain. She was seen earlier with reassuring CBC CMP and urinalysis as well as reassuring KUB but he continued to have pain after discharge and returned to the hospital. Differentials considered included colitis, enteritis, ureteral stone, bowel obstruction, cyclic vomiting syndrome, cannabinoid hyperemesis among others. We therefore obtained a CT scan given ongoing pain and this is pending at this time. I did not repeat the labs as they were done just a few hours ago and reassuring. Patient was given IV fluids, Zofran, 0.5 mg of IV Dilaudid and is currently resting comfortably. Will await the results of the CT scan before determining disposition. Patient signed out to ED attending Dr. Méndez. Departure - Departure Forms: PCP List
[2023-09-10] MEDS: SODIUM CHLORIDE 0.9% 1,000 ML IV STA (22:10)
[2023-09-10] MEDS: ONDANSETRON 4 MG/2 ML VIAL IVP STA (22:10)
[2023-09-10] MEDS: HYDROmorphone 0.5 MG/0.5 ML SYRINGE IVP STA (22:11)
[2023-09-10] MEDS: iohexoL-300 100 ML VIAL IVP ONE (22:28)
--- NOTE | 2023-09-10 22:40 | CT Report ---
PROCEDURE: Abdomen/Pelvis W INDICATIONS: abd pain CONTRAST: omni 300, 100mls TECHNIQUE: After the administration of intravenous contrast, a CT scan of the abdomen and pelvis was performed. Images were recorded and evaluated at appropriate window settings. Reformats: coronal and sagittal. F or radiation dose reduction, the following was used: automated exposure control, adjustment of mA and /or kV according to patient size. COMPARISON: 09/07/2022 FINDINGS: Image quality: Diagnostic. Lower chest: Unremarkable. Liver: No solid mass. Gallbladder and biliary tree: No radiopaque stones or wall thickening. No biliary dilation. Spleen: No splenomegaly. Pancreas: No pancreatic ductal dilation. Adrenals: No adrenal nodule. Kidneys and ureters: No hydronephrosis. No renal cystic lesion which requires follow up. No solid mas s. Stomach, bowel and peritoneum: Mildly distended fluid-filled loops of small bowel. No pathologic free fluid. Status post appendectomy. Lymph nodes: No central or retroperitoneal adenopathy. Vessels: No infrarenal aortic aneurysm. PELVIS Reproductive organs: Unremarkable. Bladder: No abnormal wall thickening, accounting for underdistention. Pelvic lymph nodes: No pelvic adenopathy by size criteria. Bones: No aggressive osseous abnormality. Other: No significant ventral or inguinal hernia. IMPRESSION: Mildly distended fluid-filled loops of small bowel without definite transition point. Findings may re present ileus or developing/partial obstruction. Reviewed by: Lev Lopez MD on 09/10/2023 10:38 PM PDT Approved by: Lev Lopez MD on 09/10/2023 10:38 PM PDT Station ID: [id number]
[2023-09-10] MEDS: HYDROmorphone 1 MG/ML CARPUJECT IVP STA (23:54)
--- NOTE | 2023-09-11 00:20 | ED Physician Documentation ---
ED Addendum - Addendum Addendum: 09/11/23 00:19 Patient endorsed to me by CRISS Pugh. The patient's CT showed possible ileus however her pain has improved substantially and she is requesting to go home after discussion of results. Passing normal flatus and had a loose BM today. No suspicion for SBO at this time. Return precautions given. Plan to follow-up with primary care provider for referral to GI. Impression 1 abdominal pain 2 nausea and vomiting Disposition Home Condition good
[2023-09-11 00:30] VITALS: BP 144/66; O2SAT 98
[2023-09-11] MEDS: ONDANSETRON 4 MG/2 ML VIAL IM STA (00:35)
== END 2023-09-11 00:36 | disposition home or self-care (01) ==
LOC: EDUNIT# → ED 21:08
DX: K56.7 Ileus, unspecified (principal); K52.9 Noninfective gastroenteritis and colitis, unspecified; Z90.89 Acquired absence of other organs
CPT/HCPCS: 36415; 74022; 74177; 80053; 81003; 83690; 85025; 96374; 96375; 96376; 99283; 99284; A9270; J1170; Q0162; Q9967; 81001; 87086

== ENCOUNTER 2024-01-27 13:42 | Outpatient (CLI) | payer OTHER, MEDICAID ==
--- NOTE | 2024-01-27 17:00 | Ultrasound Report ---
PROCEDURE: Testicle w/Doppler INDICATIONS: LEFT SCROTUM SWELLING TECHNIQUE: Real-time scanning was performed of the scrotum and testicles, with image documentation. Color and p ulse Doppler interrogation was performed of both testicles. COMPARISON: None. FINDINGS: Right: Status post right orchiectomy. Left: Testicle is normal in size at 3.7 x 1.6 x 2.3 cm, and homogeneous in echotexture. Epididymis is normal in overall size and morphology. Small left epididymal cyst. No hydrocele. No varicoceles. Overlying scrotal skin is normal in thickness. Doppler: Color and pulse Doppler demonstrate normal flow in the left testicle. IMPRESSION: 1.Status post right orchiectomy. 2.Unremarkable left testicle. Reviewed by: Chrissie Robins MD on 01/27/2024 4:58 PM PDT Approved by: Chrissie Robins MD on 01/27/2024 4:58 PM PDT Station ID: [id number]
== END 2024-01-27 13:43 | disposition home or self-care (01) ==
LOC: DI 13:42
PROVIDERS: ATTEND Urology
DX: N50.89 Other specified disorders of the male genital organs (principal); N50.812 Left testicular pain; Z90.79 Acquired absence of other genital organ(s)
CPT/HCPCS: 93975